=== PATIENT | male | born 1965 | race Caucasian/White ===

== ENCOUNTER 2017-04-20 20:15 | Emergency (ER) | payer MEDICARE, OTHER ==
[2017-04-20 21:08] LABS: BASOPHILS 0.3 % (0-2); EOSINOPHILS 2.2 % (0-7); HEMATOCRIT 44.7 % (42.0-54.0); HEMOGLOBIN 15.5 g/dL (13.5-17.5); IMMATURE GRANULOCYTES 0.4 % (0-5); LYMPHOCYTES 29.4 % (15-50); MCH 33.1 pg (26.0-34.0); MCHC 34.7 g/dL (31.0-37.0); MCV 95.5 fL (80.0-100.0); MONOCYTES 6.5 % (2-11); NEUTROPHILS 61.2 % (40-80); PLATELET COUNT 193 10x3/uL (130-400); RBC 4.68 10x6/uL (4.20-6.10); RDW 13.1 % (11.5-14.5); WBC 7.7 10x3/uL (4.8-10.8)
[2017-04-20 21:23] LABS: ALBUMIN 3.7 g/dL (3.4-5.0); ALKALINE PHOSPHATASE 104 U/L (46-116); ALT (SGPT) 33 U/L (10-68); CALC OSMOLALITY 281 mosm/kg (275-300); CALCIUM 8.9 mg/dL (8.5-10.1); CARBON DIOXIDE 29.4 mmol/L (21.0-32.0); CHLORIDE - SERUM 104 mmol/L (98-107); CREATININE - SERUM 1.2 mg/dL (0.6-1.3); GLUCOSE 79 mg/dL (74-106); POTASSIUM - SERUM 3.9 mmol/L (3.5-5.1); PROTEIN - SERUM 7.4 g/dL (6.4-8.2); SODIUM 141 mmol/L (136-145); UREA NITROGEN 18 mg/dL (7-18); eGFR NON AFRICAN AMERICAN 67 mL/min (90-120)
[2017-04-20 21:34] LABS: CKMB 0.3 U/L (0.0-3.6); CREATINE KINASE 95 UL (21-232); TROPONIN-I < 0.017 ng/mL (0.000-0.060)
== END 2017-04-20 23:13 | disposition home or self-care (01) ==
LOC: D.ER 20:15 → EDBD 20:15 → D.ER 23:13
PROVIDERS: Emergency Medicine
DX: R07.81 Pleurodynia (principal); Z86.718 Personal history of other venous thrombosis and embolism; Z86.79 Personal history of other diseases of the circulatory system; F17.200 Nicotine dependence, unspecified, uncomplicated

== ENCOUNTER 2017-05-19 12:14 | Emergency (ER) | payer MEDICARE | END 2017-05-19 14:24 | disposition home or self-care (01) | LOC: D.ER 12:14 | DX: S80.11XA Contusion of right lower leg, initial encounter (principal); W13.3XXA Fall through floor, initial encounter; Y93.89 Activity, other specified; Y92.029 Unspecified place in mobile home as the place of occurrence of the external cause ==

== ENCOUNTER → 2017-05-22 08:35 | Outpatient (CLI) | payer MEDICARE | END | disposition home or self-care (01) | LOC: D.ECHO 08:35 | DX: R06.00 Dyspnea, unspecified (principal); I10 Essential (primary) hypertension ==

== ENCOUNTER 2017-07-04 13:38 | Inpatient (IN) | payer MEDICARE, MEDICAID ==
[~2017-07-04] VITALS: Ht 182.9 cm; Wt 111.1 kg
--- NOTE | ~2017-07-04 | HEMODYNAMI ---
PATIENT:KEVIN EARLY MEDICAL RECORD: [id number] : 69 LOCATION[facility] [address] [id number] ADMISSION DATE: 07/04/17 Generatedon:07/07/201710:13 Patient name: KEVIN EARLY Patient #: [id number] SSN : : 1965 Date of study: 07/07/2017 Page: Of Hemodynamic Procedure Report Patient Data Patient Demographics Procedure consent was obtained First Name: KEVIN Gender: Male Last Name: NNEKA : 1965 [facility] Initial: YOUNG Age: 51 year(s) Patient #: [id number] Race: Unknown Additional ID: [id number] Contact details [address]: [address] [place] [address] State: [place] City: [place] Zip code: [address] Past Medical History Allergies Allergen Reaction Date Comments Reported Other allergy 07/07/2017 IBUPROFEN, METOPROLOL, RELEFEN, GARLIC, ONION Admission Admission Data Admission Date: 07/04/2017 Admission Time: 13:40 Room #: D.2127 Weight (lbs.): 244.71 Weight (kg.): 111 Lab Results Lab Result Date: 07/07/2017 Lab Result Time: 0:00 Biochemistry Name Units Result Min Max BUN mg/dl 31 --(----)-* 7 18 Creatinine mg/dl 1.1 --(--*-)-- 0.6 1.3 CBC Name Units Result Min Max Hemoglobin g/dl 14.7 --(-*--)-- 13.5 17.5 Procedure Procedure Types Cath Procedure Diagnostic Procedure Right Heart RHC and LHC w/Coronaries Miscellaneous Procedures Moderate Sedation up to 45 minutes Procedure Description Procedure Date Procedure Date: 07/07/2017 Procedure Start Time: 9:32 Procedure End Time: 10:12 Procedure Staff Name Function Petros De Souza MD Performing Physician Magaly Medellin RT Scrub Reji Reyes RN Nurse Lillian Michelle RN Nurse Jose De Jesus Bullard RT Monitor Procedure Data Cath Procedure Fluoroscopy Diagnostic fluoroscopy Total fluoroscopy Time: 5.9 time: 5.9 min min Diagnostic fluoroscopy Total fluoroscopy dose: 660 dose: 660 mGy mGy Contrast Material Contrast Material Type Amount (ml) Isovue 300 54 Entry Location Entry Primary Successful Side Size Upsize Upsize Entry Closure Saeed ccessful Closure Location (Fr) 1 (Fr) 2 (Fr) Remarks Device Remarks Femoral Right 7 Fr Manual vein Short Compression Femoral Right 5 Fr Exoseal artery Estimated blood loss: 5 ml Diagnostic catheters Device Type Used For End Catheter Placement CrowdSling 7Fr Procedure Riverside Thermodilution danny Cordis 5Fr JL 4.0 Procedure Catheter (MP) Cordis 5Fr 3DRC Catheter Procedure (MP) Cordis 5Fr Pigtail Procedure Catheter (MP) Procedure Complications No complications Procedure Medications Medication Administration Route Dosage 0.9% NaCl I.V. Oxygen NC 2 l/min Lidocaine 2% added to field 20 Heparin Flush Bag added to field 3 bags (1000units/500ml NS) Versed I.V. 1 mg Fentanyl I.V. 25 mcg Versed I.V. 1 mg Fentanyl I.V. 50 mcg Hemodynamics Rest HGB: 14.7 (g/dl) Heart Rate: 64 (bpm) Oxygen Saturations Time Location Saturations Hgb (g/dl) O2 Content Use (%) (ml/L) 9:43 AO 93.9 9:43 RV 68.8 9:43 AMY 70.3 9:43 PA 68.2 9:43 PCW 69.3 9:48 PCW 92.8 9:55 RAH 66.6 9:57 RAL 69.8 Pressure Samples Time Site Value (mmHg) Purpose Heart Use Rate(bpm) 9:42 PCW 27/31(23) Snapshot 63 9:44 PA 37/26(29) Snapshot 53 9:51 RV 44/12,21 Snapshot 63 9:53 RA 21/20(18) Snapshot 72 9:59 AO 118/85(101) Snapshot 68 10:05 LV 119/3,21 Snapshot 64 10:05 LV 117/4,23 EDP 64 10:06 AO 109/67(86) Pullback 63 10:06 LV 108/16,23 Pullback 63 Gradients Valve Time Site 1 Site 2 Mean SEP/DFP Peak To Heart Use (mmHg) (sec/min) Peak Rate (mmHg) (bpm) Aortic 10:06 LV AO 0 14 0 63 108/16,23 109/67(86) Thermodilution Cardiac Output Time Cardiac Output (l/min) Use 9:49 5.38 l/m 9:50 5.13 l/m Calculations Vascular Value Indexed CO SV CO CI Resistance (dyne) values (ml/beat) (l/min) (l/(min*m)) TSVR 1304.47 Thermal 84.08 5.26 SVR 1025.21 TPVR 441.96 PVR 90.39 PVR/SVR 0.09 Systolic Diastolic Ejection Regurgitation SW SWI TPVR/TSVR 0.34 Vol. Vol. (%) (%) Source Thermal Left 71 .68 Right 14.86 Source Thermal Content (ml/l) O2 Difference (ml/l) O2 SA 187.72 SA-MV(AV) 51.37 O2 MV 136.35 PV-PA(VA) O2 PA 136.35 PV-MV(VV) Valve P-P Mean Valve Index Valve Source Name Gradient Area Flow (cm2) Aortic 0 0 363.67 Thermal 0 0 Snapshots Thermal Samples Pre Cath Intra NCS Post Cath Vital Signs Time Heart Resp SPO2 etCO2 NIBP (mmHg) Rhythm Pain Sedation Rate (ipm) (%) (mmHg) Status Level (bpm) 9:14:53 71 14 97 0 Measuring NSR 0 (11) 10(A) , No pain 9:15:18 71 18 97 0 No Cuff NSR 0 (11) 10(A) , No pain 9:18:16 64 16 98 39.5 131/79(103) NSR 0 (11) 10(A) , No pain 9:22:55 60 26 99 38 125/85(109) NSR 0 (11) 10(A) , No pain 9:27:35 58 30 98 35.7 117/77(95) NSR 0 (11) 10(A) , No pain 9:32:14 66 27 93 36.5 117/72(95) NSR 0 (11) 10(A) , No pain 9:36:55 65 16 92 38 120/79(94) NSR 0 (11) 10(A) , No pain 9:41:33 65 22 93 39.5 120/82(99) NSR 0 (11) 10(A) , No pain 9:46:12 69 31 94 35.7 119/75(102) NSR 0 (11) 10(A) , No pain 9:50:50 60 16 94 35.7 114/78(90) NSR 0 (11) 10(A) , No pain 9:55:27 64 32 93 40.3 120/80(97) NSR 0 (11) 10(A) , No pain 10:00:05 65 48 94 38 120/79(93) NSR 0 (11) 10(A) , No pain 10:04:44 66 32 96 38.8 113/69(86) NSR 0 (11) 10(A) , No pain 10:09:23 62 21 94 39.5 109/65(88) NSR 0 (11) 10(A) , No pain Medications Time Medication Route Dose Verified Delivered Reason Notes Effe ctiveness by by 9:18:16 0.9% NaCl I.V. kvo/hr Petros Lillian used for Nolvia woodward MD 9:18:38 Oxygen NC 2 Petros Lillian used for l/min Nolvia woodward MD 9:19:02 Lidocaine 2% added 20ml Petros Petros used for to vial Nolvia De Souza MD procedure field RAI 9:19:36 Heparin Flush added 3 bags Petros Petros used for Bag to Nolvia De Souza MD procedure (1000units/500ml field RAI NS) 9:33:11 Versed I.V. 1 mg Petros Lillian for Nolvia Michelle RN sedation 9:33:27 Fentanyl I.V. 25 mcg Petros Lillian for Nolvia Michelle RN sedation 10:00:03 Versed I.V. 1 mg Petros Lillian for Nolvia Michelle RN sedation 10:00:15 Fentanyl I.V. 50 mcg Petros Lillian for Nolvia Michelle RN sedation Procedure Log Time Note 8:42:59 Reji Reyes RN sent for patient. Start room use. 8:43:01 Time tracking: Regular hours 8:43:06 Plan of Care:Hemodynamics will remain stable., Cardiac rhythm will remain stable., Comfort level will be maintained., Respiratory function will remain adequate., Patient/ family verbilizes understanding of procedure., Procedure tolerated without complication., Recovers from procedure without complications.. 8:43:37 H&P Date Dictated: 07/06/2017 Within 30 days and on chart.. 8:44:21 Lab Result : BUN 31 mg/dl 8:44: Lab Result : Creatinine 1.1 mg/dl 8:44: Lab Result : Hemoglobin 14.7 g/dl 9::21 Patient received from PCU to CCL 1 Alert and oriented. Tansferred to table in Supine position. 9::23 Warm blankets applied, and blayne hugger turned on for patient comfort. 9::24 Correct patient and procedure confirmed by team. 9::25 Signed procedure consent form obtained from patient. 9:: ECG and BP/O2 sat monitors applied to patient. 9:13:45 Vital chart was started 9:18:07 Baseline sample Acquired. 9:18:15 Rhythm: sinus rhythm 9:18:16 0.9% NaCl kvo/hr I.V. was administered by Lillian Michelle RN; used for procedure; 9:18:16 Full Disclosure recording started 9:18:17 Pre-procedure instructions explained to patient. 9:18:18 Pre-op teaching completed and patient verbalized understanding. 9:18:21 Family in waiting room. 9:18:23 Patient NPO since Midnight. 9:18:38 Oxygen 2 l/min NC was administered by Lillian Michelle RN; used for procedure; 9:19:02 Lidocaine 2% 20ml vial added to field was administered by Petros De Souza MD; used for procedure; 9:19:36 Heparin Flush Bag (1000units/500ml NS) 3 bags added to field was administered by Petros De Souza MD; used for procedure; 9:21:13 Patient allergic to Other allergyIBUPROFEN, METOPROLOL, RELEFEN, GARLIC, ONION 9:21:15 Is the patient allergic to Iodine/contrast media? No. 9:21:19 Is patient on blood thinner?Yes 9:21:28 ACC The patient was administered the following blood thiners within the last 24 hours: ACCPlavix, Eliquis 9:21:35 Patient diabetic? No. 9:21:38 Previous problem with sedation/anesthesia? No ? 9:21:44 Snore? Yes 9:21:45 Sleep apnea? No 9:21:46 Deviated septum? No 9:21:47 Opens mouth fully? Yes 9:21:48 Sticks out tongue? Yes 9:21:50 Airway obstruction? No ? 9:21:52 Dentures? No ? 9:21:57 Pre procedure: right dorsailis pedis pulse 2+ Normal; easily identifiable; not easily obliterated 9:22:02 Patient pain scale 0/10 ?. 9:22:07 IV patent on arrival in right hand with 0.9% NaCl at [facility]. 9:22:10 Lab results completed and on chart. 9:22:15 Right groin area was prepped with chlora-prep and draped in sterile fashion 9:22:16 Alarms reviewed by R. N. 9:22:17 Sharps counted by scrub and verified by R.N. 9:26:27 Physician paged 9:26:40 Use device set Femoral Dx 9:26:41 Acist Syringe opened to sterile field. 9:26:44 Tegaderm 4 x 4 opened to sterile field. 9:26:45 Acist Hand Control opened to sterile field. 9:26:45 Acist Manifold opened to sterile field. 9:26:46 Bag Decanter opened to sterile field. 9:26:46 Medline Cath Pack opened to sterile field. 9:26:47 Terumo 5Fr Kingston Sheath opened to sterile field. 9:26:47 St Clint 260cm J .035 wire opened to sterile field. 9:26:49 Diagnostic Infinity 5Fr Multipack catheter opened to sterile field. 9:27:13 Cook 4Fr Micropuncture ([id number]) opened to sterile field. 9:27:36 --------ALL STOP TIME OUT------ 9:27:37 Final Timeout: patient, procedure, and site verified with staff and physician. All members of the team are in agreement. 9:27:47 Right groin site verified by team. 9:27:52 Physical assessment completed. ASA score P 2 - A patient with mild systemic disease as per Petros De Souza MD. 9:27:56 Sedation plan: IV Moderate Sedation Versed, Fentanyl 9:32:50 Procedure started. 9:32:59 Local anesthetic to right femoral artery with Lidocaine 2% by Petros De Souza MD.INITIAL ACCESS ONLY 9:33:11 Versed 1 mg I.V. was administered by Lillian Michelle RN; for sedation; 9:33:27 Fentanyl 25 mcg I.V. was administered by Lillian Michelle RN; for sedation; 9:34:29 A 7 Fr Short sheath was inserted into the Right Femoral vein 9:34:39 A 5 Fr sheath was inserted into the Right Femoral artery 9:37:59 Merit Prelude Femoral Sheath (NO COST SUPPLY) opened to sterile field. 9:40:25 A CrowdSling 7Fr Riverside Thermodilution danny was advanced over the wire and used for Procedure. 9:43:30 AO saturation: 93.9% 9:43:34 RV saturation: 68.8% 9:43:37 Mid RA saturation: 70.3% 9:43:39 PA saturation: 68.2% 9:43:44 PCW saturation: 69.3% 9:44:52 Patient Weight : 244.71 lbs 9:48:48 PCW saturation: 92.8% 9:49:32 Thermodilution performed using a Sauceda 131F7 7.0 Fr 19-22C 10.00 mL. Injectate temperature was 16.68 C, CO: 5.38 L/min, average CO: 5.26 L/min 9:50:47 Thermodilution performed using a Sauceda 131F7 7.0 Fr 19-22C 10.00 mL. Injectate temperature was 16.70 C, CO: 5.13 L/min, average CO: 5.26 L/min 9:55:42 High RA saturation: 66.6% 9:56:40 Right heart pressures and cardiac output were obtained. 9:56:43 Oximetry samples were obtained 9:56:44 Riverside-Juliet removed. 9:57:13 Low RA saturation: 69.8% 9:58:42 A Cordis 5Fr JL 4.0 Catheter (MP) was advanced over the wire and used for Procedure. 9:59:58 LCA angiography performed. 10:00:03 Versed 1 mg I.V. was administered by Lillian Michelle RN; for sedation; 10:00:15 Fentanyl 50 mcg I.V. was administered by Lillian Michelle RN; for sedation; 10:01:29 Catheter removed. 10:02:03 A Cordis 5Fr 3DRC Catheter (MP) was advanced over the wire and used for Procedure. 10:03:13 RCA angiography performed. 10:03:15 Catheter removed. 10:04:00 A Cordis 5Fr Pigtail Catheter (MP) was advanced over the wire and used for Procedure. 10:06:19 Catheter removed. 10:06:48 Cordis 5Fr Exoseal opened to sterile field. 10:07:02 Sheath removed intact; hemostasis achieved with Exoseal to the Right Femoral artery. 10:07:09 Sheath removed intact; hemostasis achieved with Manual Compression to the Right Femoral vein. 10:07:20 Procedure ended.(Physican Out) 10:07:37 Fluoroscopy time 05.90 minutes. 10:07:46 Fluoroscopy dose: 660 mGy 10:07:46 Flurop Dose total: 660 10:07:50 Contrast amount:Isovue 300 54ml. 10:07:52 Sharps counted by scrub and verified by R.N. 10:08:08 Post-op/insertion site Right Femoral artery dressed using a 4 x 4 and Tegaderm. 10:08:28 Post right femoral artery:stable, soft, clean and dry 10:08:29 Post Procedure Pulses reassessed and unchanged 10:08:36 Post procedure: right dorsailis pedis pulse 2+ Normal; easily identifiable; not easily obliterated. 10:08:41 Post-procedure physical assessment completed. ASA score P 2 - A patient with mild systemic disease as per Petros De Souza MD. 10:08:45 Post procedure rhythm: unchanged. 10:08:49 Estimated blood loss: 5 ml 10:08:51 Post procedure instruction explained to patient.Patient verbalizes understanding. 10:08:53 Patient needs reinforcement of post procedure teaching. 10:09:34 Procedure type changed to Cath procedure, Diagnostic procedure, Right Heart, RHC and LHC w/Coronaries, Miscellaneous Procedures, Moderate Sedation up to 45 minutes 10:10:56 Procedure and supply charges have been captured, reviewed, submitted and are correct. 10:10:58 Procedure Complication : No complications 10:12:26 Vital chart was stopped 10:12:26 See physician's report for complete and final results. 10:12:30 Report given to PCU. 10:12:34 Patient transfered to PCU with Bed. 10:12:35 Procedure ended. 10:12:35 Full Disclosure recording stopped 10:12:41 End room use (Document Last) Device Usage Item Name Manufacture Quantity Catalog Hospital Part Current Minima l Lot# / Number Charge Number Stock Stock Serial# Code Acist Syringe Acist 1 25467 [id number] 686030 740849 20 Medical Systems Inc Tegaderm 4 x 4 3M 1 [id number] [id number] 168183 491848 5 Acist Hand Acist 1 99608 923691 544274 938590 5 Control Medical Systems Inc Acist Manifold Acist 1 07697 215138 620999 591619 5 Medical Systems Inc Bag Decanter Microtek 1 2002S 602392 03352 547241 5 Medical Inc. Medline Cath Cardinal 1 [id number] 352788 23466 477287 5 Pack Health Terumo 5Fr Terumo 1 [id number] 355244 242122 979821 [address] Clint [address] Clint 1 396963 093995 334063 653492 30 J .035 wire Diagnostic Cardinal 1 [id number] 185504 38197 752338 30 Infinity 5Fr Health Multipack catheter Cook 4Fr Cook Medical 1 [id number] 168884 206826 632045 5 Micropuncture ([id number]) Merit Prelude Merit 1 540705 935086 5 Femoral Sheath Medical (NO COST SUPPLY) Sauceda Sauceda 1 [id number] 368924 68233 585429 3 Lifesciences Lifesciences 7Fr Riverside Thermodilution danny Cordis 5Fr JL Cardinal 1 696926 5 4.0 Catheter Health (MP) Cordis 5Fr Cardinal 1 023553 5 3DRC Catheter Health (MP) Cordis 5Fr Cardinal 1 597572 5 Pigtail Health Catheter (MP) Cordis 5Fr Cardinal 1 EX500 900438 870044 969851 10 [facility] Divide Signature Audit [place] Stage Time Signature Unsigned Intra-Procedure 07/07/2017 Magaly Medellin 10:13:01 AM RT(R) Signatures Monitor : Jose De Jesus Bullard RT Signature : Date : Time : [facility] [address] [facility], [facility]901
--- NOTE | 2017-07-04 14:00 | NUR ---
RECEIVED PT FROM ADMISSIONS VIA W/C SOB NOTED O2 SAT 96% ON ROOM AIR SKIN W/D COLOR WNL TELEMETRY APPLIED PT IS AAOX4 IV SITD TO RT HAND WITH 22 GA IV CATHETER X1 STICK USING ASEPTIC TECHNIQUE PER FINISHER HOT STRIP WILL CONTINUE TO MONITOR
[2017-07-04 14:03] VITALS: BMI 34.0
[2017-07-04 15:54] LABS: BASOPHILS 0.1 % (0-2); EOSINOPHILS 1.4 % (0-7); HEMATOCRIT 44.4 % (42.0-54.0); HEMOGLOBIN 15.4 g/dL (13.5-17.5); IMMATURE GRANULOCYTES 0.3 % (0-5); LYMPHOCYTES 23.1 % (15-50); MCH 32.8 pg (26.0-34.0); MCHC 34.7 g/dL (31.0-37.0); MCV 94.5 fL (80.0-100.0); MEAN PLATELET VOLUME 11.2 fL (7.4-10.4); MONOCYTES 4.1 % (2-11); PLATELET COUNT 176 10x3/uL (130-400); RDW 12.3 % (11.5-14.5)
[2017-07-04 16:00] VITALS: BP 121/86
[2017-07-04 16:41] LABS: ALBUMIN 3.7 g/dL (3.4-5.0); ALKALINE PHOSPHATASE 123 U/L (46-116); ALT (SGPT) 41 U/L (10-68); BILIRUBIN - TOTAL 0.27 mg/dL (0.2-1.3); CALC OSMOLALITY 276 mosm/kg (275-300); CALCIUM 9.1 mg/dL (8.5-10.1); CARBON DIOXIDE 29.2 mmol/L (21.0-32.0); CHLORIDE - SERUM 103 mmol/L (98-107); GLUCOSE 86 mg/dL (74-106); POTASSIUM - SERUM 4.1 mmol/L (3.5-5.1); PRO BNP 32 pg/mL (0-125); PROTEIN - SERUM 7.6 g/dL (6.4-8.2); SODIUM 140 mmol/L (136-145); UREA NITROGEN 9 mg/dL (7-18); eGFR NON AFRICAN AMERICAN 84 mL/min (90-120)
--- NOTE | 2017-07-04 19:20 | NUR ---
ROUNDING NOTE: PT IS SOB AND VERY WHEEZY UPON ENTERING ROOM. HIS OXYGEN SAT IS 96% ON RA. CALLED [facility]Y TO GET UPDRAFT TREATMENT. PT ALSO W/ C/O PLEURITIC CP AND JORDAN. MEDICATED W/ FIORICET. IF THAT DOES NOT HELP, WILL CALL MD FOR ADDITIONAL ORDERS. PT HAS 22G TO LEFT HAND SALINE LOC. PT IS ALERT AND ORIENTED, UP AD GILBERT. WILL CONT TO MONITOR.
[2017-07-04 21:05] VITALS: BP 141/92
[2017-07-05] VITALS (7 sets, daily range): BP systolic 94–128; BP diastolic 35–79; Ht 182.9 cm; Wt 111.1 kg
--- NOTE | 2017-07-05 00:45 | NUR ---
PT STILL W/ C/O PLEURITIC CP AND HEADACHE DUE TO COUGHING. IN ADDITION, PT QUESTIONS IF HE IS SUPPOSED TO BE GETTING A STEROID, WHICH HAS NOT BEEN ORDERED. ACCORDING TO DR. MISTRY'S OFFICE NOTE, HIS INTENTION WAS TO ORDER STEROIDS. CALL MADE TO DR. FLORES IN THE ER AND RECEIVED ORDERS FOR IV SOLUMEDROL AND PEROCET FOR PAIN. WILL CONT TO MONITOR.
--- NOTE | 2017-07-05 04:30 | NUR ---
PT STATES THAT HE IS FEELING MUCH BETTER AFTER RECEIVING HIS STEROIDS AND UPDRAFTS. WILL CONT TO MONITOR.
[2017-07-05 06:03] LABS: BASOPHILS 0.3 % (0-2); HEMATOCRIT 45.7 % (42.0-54.0); HEMOGLOBIN 15.5 g/dL (13.5-17.5); IMMATURE GRANULOCYTES 0.3 % (0-5); LYMPHOCYTES 10.9 % (15-50); MCH 32.4 pg (26.0-34.0); MCHC 33.9 g/dL (31.0-37.0); MCV 95.6 fL (80.0-100.0); MEAN PLATELET VOLUME 11.4 fL (7.4-10.4); MONOCYTES 1.9 % (2-11); NEUTROPHILS 85.6 % (40-80); PLATELET COUNT 194 10x3/uL (130-400); RBC 4.78 10x6/uL (4.20-6.10); RDW 12.5 % (11.5-14.5); WBC 7.3 10x3/uL (4.8-10.8)
[2017-07-05 06:37] LABS: ALBUMIN 3.6 g/dL (3.4-5.0); ANION GAP 12.1 mmol/L (8-16); BILIRUBIN - TOTAL 0.3 mg/dL (0.2-1.3); CALCIUM 9.4 mg/dL (8.5-10.1); CARBON DIOXIDE 28.4 mmol/L (21.0-32.0); POTASSIUM - SERUM 4.5 mmol/L (3.5-5.1); PROTEIN - SERUM 7.5 g/dL (6.4-8.2)
[2017-07-05 06:44] LABS: CREATININE - SERUM 1.3 mg/dL (0.6-1.3)
[2017-07-05] MEDS ORDERED: BENAZEPRIL HCL10 MG PO (06:48)
[2017-07-05] MEDS ORDERED: REVATIO20 MG PO (06:49)
[2017-07-05] MEDS ORDERED: ASPIRIN325 MG PO (06:49)
[2017-07-05] MEDS ORDERED: CELEXA40 MG PO (06:50)
[2017-07-05] MEDS ORDERED: KLONOPIN0.5 MG PO (06:51)
[2017-07-05] MEDS ORDERED: FENOFIBRATE54 MG PO (06:53)
[2017-07-05] MEDS ORDERED: NITROQUICK0.4 MG SL (06:54)
[2017-07-05] MEDS ORDERED: COREG 3.1253.125 MG PO (06:54)
--- NOTE | 2017-07-05 07:15 | NUR ---
PT WAS UP AROUND THE ROOM, NO C/O PAIN REPORTED. IV TO LEFT HAND SALINE LOCKED. NO C/O DISCOMFORT STATED FEELS BETTER. WILL CONT TO MONITOR.
--- NOTE | 2017-07-05 08:47 | NUR ---
UP SOB EATING BRK. JAY NEEDS AT THIS TIME. CALL LIGHT IN REACH. WILL MONITOR.
--- NOTE | 2017-07-05 19:16 | NUR ---
INITIAL ROUNDS COMPLETED. PT DENIES ANY DISCOMFORT. WILL CONTINUE TO MONITOR.
--- NOTE | 2017-07-05 20:10 | NUR ---
ADMISSION ASSESSMENT COMPLETED. IV TO L HAND SL. LUNGS DIMINISHED IN BASES BILAT WITH FAINT EXP WHEEZE TO UPPER L LOBE. ALERT AND ORIENTED TO PERSON, PLACE AND TIME. FAMILY AT BEDSIDE. SR UP X2, CALL LIGHT WITHIN REACH.
--- NOTE | 2017-07-05 21:14 | NUR ---
PM MEDS GIVEN. PT DENIES ANY DISCOMFORT. WILL CONTINUE TO MONITOR.
--- NOTE | 2017-07-05 23:44 | NUR ---
O2 SAT RUNNING IN HIGH 80'S. O2 2LNC PLACED WITH O2 SAT TO 93%. PERCOCET PO GIVEN FOR C/O JORDAN. WILL CONTINUE TO MONITOR.
--- NOTE | 2017-07-06 02:11 | NUR ---
PT RESTING WITH EYES CLOSED. RESP EVEN AND REGULAR. SR UP X2, CALL LIGHT WITHIN REACH.
[2017-07-06 04:24] VITALS: BP 101/67
--- NOTE | 2017-07-06 05:00 | NUR ---
PT RESTING WITH EYES CLOSED. RESP EVEN AND REGULAR. SR UP X2, CALL LIGHT WITHIN REACH.
--- NOTE | 2017-07-06 06:13 | NUR ---
VSS. PT TATED PERCOCET CONTROLLED PAIN. NEEDS MT; WILL CONTINUE TO MONITOR.
[2017-07-06 06:47] LABS: BASOPHILS 0 % (0-2); EOSINOPHILS 0 % (0-7); HEMATOCRIT 43.2 % (42.0-54.0); HEMOGLOBIN 14.8 g/dL (13.5-17.5); IMMATURE GRANULOCYTES 0.2 % (0-5); LYMPHOCYTES 5.7 % (15-50); MCH 32.3 pg (26.0-34.0); MCHC 34.3 g/dL (31.0-37.0); MCV 94.3 fL (80.0-100.0); MEAN PLATELET VOLUME 11.5 fL (7.4-10.4); MONOCYTES 1.5 % (2-11); NEUTROPHILS 92.6 % (40-80); PLATELET COUNT 212 10x3/uL (130-400); RBC 4.58 10x6/uL (4.20-6.10); RDW 12.5 % (11.5-14.5)
[2017-07-06 06:48] LABS: WBC 13.2 10x3/uL (4.8-10.8)
[2017-07-06 06:50] LABS: ALBUMIN 3.5 g/dL (3.4-5.0); ANION GAP 13.9 mmol/L (8-16); BILIRUBIN - TOTAL 0.3 mg/dL (0.2-1.3); CARBON DIOXIDE 25.6 mmol/L (21.0-32.0); CREATININE - SERUM 1.3 mg/dL (0.6-1.3); POTASSIUM - SERUM 4.5 mmol/L (3.5-5.1); PROTEIN - SERUM 7.2 g/dL (6.4-8.2)
--- NOTE | 2017-07-06 07:30 | NUR ---
INTRODUCED MYSELF TO PT PRIMARY RN FOR TODAYS SHIFT. PT RESTING QUIETLY IN BED AND DENIES ANY CURRENT PAIN OR NEEDS. WILL CHECK CHART AND CPOC.
[2017-07-06 08:47] VITALS: BP 118/71
--- NOTE | 2017-07-06 11:10 | NUR ---
AT BEDSIDE FOR CONSULT. PT DENIES ANY CURRENT NEEDS AT THIS TIME. WILL CPOC.
[2017-07-06 12:03] VITALS: BP 126/63
[2017-07-06 12:54] LABS: HEMATOCRIT 45.5 % (42.0-54.0); HEMOGLOBIN 15.7 g/dL (13.5-17.5); MCH 32.8 pg (26.0-34.0); MCHC 34.5 g/dL (31.0-37.0); MCV 95.2 fL (80.0-100.0); MEAN PLATELET VOLUME 11.3 fL (7.4-10.4); PLATELET COUNT 209 10x3/uL (130-400); RBC 4.78 10x6/uL (4.20-6.10); RDW 12.4 % (11.5-14.5); WBC 22.9 10x3/uL (4.8-10.8)
--- NOTE | 2017-07-06 13:09 | NUR ---
EKG COMPLETED ORDERED. PT WILL BE NPO AFTER MIDNIGHT FOR PLANNED HEART CATH TOMORROW AND PT VERBALIZED UNDERSTANDING. PT DENIES ANY CURRENT NEEDS, EMPTIED URINAL OF 700CC CLEAR YELLOW URINE. CL IN REACH. WILL CPOC.
[2017-07-06 13:19] LABS: CALC OSMOLALITY 278 mosm/kg (275-300); CARBON DIOXIDE 29.7 mmol/L (21.0-32.0); CHLORIDE - SERUM 96 mmol/L (98-107); CKMB 0.3 U/L (0.0-3.6); CREATINE KINASE 92 UL (21-232); CREATININE - SERUM 1.3 mg/dL (0.6-1.3); GLUCOSE 136 mg/dL (74-106); POTASSIUM - SERUM 4.3 mmol/L (3.5-5.1); SODIUM 135 mmol/L (136-145); UREA NITROGEN 33 mg/dL (7-18); eGFR NON AFRICAN AMERICAN 62 mL/min (90-120)
[2017-07-06 13:21] LABS: TROPONIN-I < 0.017 ng/mL (0.000-0.060)
[2017-07-06 13:44] LABS: LYMPHOCYTES 5 % (15-50); MONOCYTES 2 % (2-11); NEUTROPHILS 88 % (40-80)
[2017-07-06 13:45] LABS: PLATELET ESTIMATE NORMAL; PLATELET MORPHOLOGY GIANT PLTS PRESENT
--- NOTE | 2017-07-06 14:44 | NUR ---
PT UP AMBULATING AROUND NURSES STATION. RR NONLABORED PT C/O SLIGHT R.RIB/CHEST PAIN BUT STATES HE COULD BE CONSTIPATED AND STATES HE HASNT HAD A BM SINCE THE 8TH THIS MONTH. PROVIDED PT WITH SOME PRUNE JUICE REQUESTED AND WILL CTM.
[2017-07-06 16:23] VITALS: BP 91/60
[2017-07-06 18:46] LABS: CKMB 0.2 U/L (0.0-3.6); CREATINE KINASE 76 UL (21-232)
[2017-07-06 18:47] LABS: TROPONIN-I < 0.017 ng/mL (0.000-0.060)
[2017-07-06 19:00] VITALS: BP 156/75
--- NOTE | 2017-07-06 19:38 | NUR ---
RESUMED CARE OF PT, UP IN ROOM AMBULATING RESPIRATIONS EVEN AND UNLABORED ON 2LPM VIA NC. LEFT HAND SALINE LOCKED. CALL LIGHT IN REACH. NO NEEDS AT THIS TIME, WILL CONTINUE TO MONITOR. SEE NURSE ASSESSMENT.
--- NOTE | 2017-07-07 00:07 | NUR ---
NPO AT THIS TIME, NO NEEDS VOICED. CALL LIGHT IN REACH. WILL CONTINUE TO MONITOR.
[2017-07-07 00:38] VITALS: BP 118/59
[2017-07-07 01:42] LABS: CKMB 0.2 U/L (0.0-3.6); CREATINE KINASE 61 UL (21-232)
[2017-07-07 01:44] LABS: TROPONIN-I < 0.017 ng/mL (0.000-0.060)
[2017-07-07 04:24] VITALS: BP 112/63
[2017-07-07 05:36] LABS: BASOPHILS 0 % (0-2); EOSINOPHILS 0 % (0-7); HEMATOCRIT 43.2 % (42.0-54.0); HEMOGLOBIN 14.7 g/dL (13.5-17.5); IMMATURE GRANULOCYTES 0.3 % (0-5); LYMPHOCYTES 6.3 % (15-50); MCH 32.8 pg (26.0-34.0); MCV 96.4 fL (80.0-100.0); MEAN PLATELET VOLUME 11.8 fL (7.4-10.4); MONOCYTES 2.4 % (2-11); PLATELET COUNT 187 10x3/uL (130-400); RBC 4.48 10x6/uL (4.20-6.10); RDW 12.4 % (11.5-14.5); WBC 13.4 10x3/uL (4.8-10.8)
[2017-07-07 05:42] LABS: ALBUMIN 3.6 g/dL (3.4-5.0); ALKALINE PHOSPHATASE 98 U/L (46-116); ALT (SGPT) 35 U/L (10-68); BILIRUBIN - TOTAL 0.18 mg/dL (0.2-1.3); CALC OSMOLALITY 284 mosm/kg (275-300); CALCIUM 8.8 mg/dL (8.5-10.1); CARBON DIOXIDE 30.4 mmol/L (21.0-32.0); CHLORIDE - SERUM 100 mmol/L (98-107); CREATININE - SERUM 1.1 mg/dL (0.6-1.3); GLUCOSE 163 mg/dL (74-106); MAGNESIUM - SERUM 2.8 mg/dL (1.8-2.4); PHOSPHOROUS 3.7 mg/dL (2.5-4.9); PROTEIN - SERUM 7.1 g/dL (6.4-8.2); SODIUM 137 mmol/L (136-145); UREA NITROGEN 31 mg/dL (7-18); eGFR NON AFRICAN AMERICAN 75 mL/min (90-120)
[2017-07-07 05:44] LABS: POTASSIUM - SERUM 5.1 mmol/L (3.5-5.1)
--- NOTE | 2017-07-07 07:30 | NUR ---
ASSESSMENT COMPLETED. 02 AT 2 L/M PER NC. RIGHT UPPER ARM SL. TELEMERTY SHOWS SR. DENIES ANY PAIN. CALL LIGHT IN REACH WITH SR UP WILL MONITOR
[2017-07-07 08:00] VITALS: BP 123/78
--- NOTE | 2017-07-07 11:00 | NUR ---
TO SATELLITE DISH INSTALLER PER BED.
--- NOTE | 2017-07-07 11:12 | NUR ---
RESTING QUIETLY EYES CLOSED RESP UNLABORED NAD NOTED
[2017-07-07 12:00] VITALS: BP 96/67
--- NOTE | 2017-07-07 14:18 | NUR ---
UP FOR DIET. DENIES ANY NEEDS, RIGHT GROIN SOFT WITH DRSG DRY AND INTACT. UP AB GILBERT. TELEMERTY SHOWS SR
[2017-07-07 17:21] VITALS: BP 119/53
[2017-07-07 21:30] VITALS: BP 124/88
--- NOTE | 2017-07-07 22:38 | NUR ---
PT IN BED RESTING QUIETLY. BREATHING EVEN AND UNLABORED. BED IN LOW POSITION, CALL LIGHT WITHIN REACH.
--- NOTE | 2017-07-07 22:41 | NUR ---
PT IN BED RESTING QUIETLY. DENIES ANY PAIN OR NEEDS AT THIS TIME. BED IN LOW POSITION, CALL LIGHT WITHIN REACH.
[2017-07-08 02:05] VITALS: BP 120/79
[2017-07-08 05:33] LABS: BASOPHILS 0 % (0-2); EOSINOPHILS 0 % (0-7); HEMATOCRIT 48.9 % (42.0-54.0); HEMOGLOBIN 16.4 g/dL (13.5-17.5); IMMATURE GRANULOCYTES 0.3 % (0-5); LYMPHOCYTES 4.7 % (15-50); MCH 32.3 pg (26.0-34.0); MCHC 33.5 g/dL (31.0-37.0); MCV 96.4 fL (80.0-100.0); MEAN PLATELET VOLUME 11.7 fL (7.4-10.4); MONOCYTES 7.2 % (2-11); NEUTROPHILS 87.8 % (40-80); PLATELET COUNT 183 10x3/uL (130-400); RBC 5.07 10x6/uL (4.20-6.10); RDW 12.7 % (11.5-14.5); WBC 11.5 10x3/uL (4.8-10.8)
--- NOTE | 2017-07-08 05:44 | NUR ---
PT JUST INFORMED ME THAT HE HAS HAD BLURRED VISION SINCE EARLIER YESTERDAY. STATES IT HAS GOTTEN A LOT BETTER BUT THAT HE DIDNT MENTION IT RIGHT AWAY BECAUSE HE THOUGHT IT WAS NORMAL. WILL PASS ON IN REPORT.
[2017-07-08 05:45] LABS: ALBUMIN 3.7 g/dL (3.4-5.0); ALKALINE PHOSPHATASE 95 U/L (46-116); CALC OSMOLALITY 286 mosm/kg (275-300); CALCIUM 8.9 mg/dL (8.5-10.1); CARBON DIOXIDE 31.2 mmol/L (21.0-32.0); CHLORIDE - SERUM 99 mmol/L (98-107); CREATININE - SERUM 1.1 mg/dL (0.6-1.3); GLUCOSE 137 mg/dL (74-106); POTASSIUM - SERUM 4.6 mmol/L (3.5-5.1); PROTEIN - SERUM 7.5 g/dL (6.4-8.2); SODIUM 138 mmol/L (136-145); UREA NITROGEN 38 mg/dL (7-18); eGFR NON AFRICAN AMERICAN 75 mL/min (90-120)
[2017-07-08 05:54] LABS: ALT (SGPT) 61 U/L (10-68)
[2017-07-08 07:26] LABS: IMMUNOGLOBULIN E 250 IU/mL (0-100)
--- NOTE | 2017-07-08 07:27 | NUR ---
RESTING QUIETLY RESP UNLABORED NAD NOTED
--- NOTE | 2017-07-08 07:35 | NUR ---
ASSESSMENT COMPLETED. DENIES ANY NEEDS. TELEMERTY SHOWS SR 71. UP AB GILBERT. CATH SITES TO LEFT AND RIGHT GROIN WITH DRSG DRY AND INTACT. PPP. SL TO UPPER RIGHT ARM. WILL MONITOR
[2017-07-08 08:34] VITALS: BP 125/62
[2017-07-08 09:17] LABS: ANA REFLEX - DIRECT Negative (Negative)
--- NOTE | 2017-07-08 12:20 | NUR ---
UP ON SIDE OF BED FOR DIET. NO NEEDS VOICED. TELEMERTY SHOWS SB
[2017-07-08 12:38] VITALS: BP 132/86
[2017-07-08 16:52] VITALS: BP 120/87
--- NOTE | 2017-07-08 19:20 | NUR ---
PT IN BED RESTING QUIETLY. DENIES ANY PAIN OR NEEDS AT THIS TIME. WILL CTM.
[2017-07-08 20:33] VITALS: BP 126/88
--- NOTE | 2017-07-09 01:30 | NUR ---
PT IN BED RESTING QUIETLY WITH EYES CLOSED. BREATHING EVEN AND UNLABORED. BED IN LOW POSITION, CALL LIGHT WITHIN REACH.
[2017-07-09 04:39] VITALS: BP 103/59
[2017-07-09 05:48] LABS: BASOPHILS 0 % (0-2); EOSINOPHILS 0 % (0-7); HEMATOCRIT 46.7 % (42.0-54.0); IMMATURE GRANULOCYTES 0.5 % (0-5); LYMPHOCYTES 11.4 % (15-50); MCH 32.5 pg (26.0-34.0); MCHC 34.3 g/dL (31.0-37.0); MCV 94.9 fL (80.0-100.0); MEAN PLATELET VOLUME 11.5 fL (7.4-10.4); MONOCYTES 5.6 % (2-11); NEUTROPHILS 82.5 % (40-80); PLATELET COUNT 181 10x3/uL (130-400); RBC 4.92 10x6/uL (4.20-6.10); RDW 12.3 % (11.5-14.5); WBC 9.1 10x3/uL (4.8-10.8)
[2017-07-09 06:12] LABS: ALBUMIN 3.5 g/dL (3.4-5.0); ALKALINE PHOSPHATASE 95 U/L (46-116); ALT (SGPT) 47 U/L (10-68); CALC OSMOLALITY 278 mosm/kg (275-300); CALCIUM 8.7 mg/dL (8.5-10.1); CARBON DIOXIDE 27.7 mmol/L (21.0-32.0); CHLORIDE - SERUM 99 mmol/L (98-107); CREATININE - SERUM 1.1 mg/dL (0.6-1.3); GLUCOSE 131 mg/dL (74-106); POTASSIUM - SERUM 4.6 mmol/L (3.5-5.1); PROTEIN - SERUM 7.2 g/dL (6.4-8.2); SODIUM 135 mmol/L (136-145); UREA NITROGEN 32 mg/dL (7-18); eGFR NON AFRICAN AMERICAN 75 mL/min (90-120)
[2017-07-09 07:52] VITALS: BP 131/87
[2017-07-09 11:59] VITALS: BP 114/72
[2017-07-09] MEDS ORDERED: SINGULAIR10 MG PO (13:16)
[2017-07-09] MEDS ORDERED: DALIRESP500 MCG PO (13:16)
[2017-07-09] MEDS ORDERED: OMNICEF300 MG PO (13:17)
[2017-07-09] MEDS ORDERED: FLORAJEN3 CAPS460 MG PO (13:17)
[2017-07-09] MEDS ORDERED: PREDNISONE10 MG PO (13:18)
[2017-07-09 14:22] LABS: ANCA - ANTIMYELOPEROXIDASE <9.0 U/mL (0.0-9.0); ANCA - ANTIPROTEINASE 3 <3.5 U/mL (0.0-3.5); ANCA - ATYPICAL <1:20 titer (Neg:<1:20); ANCA - CYTOPLASMIC <1:20 titer (Neg:<1:20); ANCA - PERINUCLEAR <1:20 titer (Neg:<1:20)
[2017-07-09 14:59] VITALS: BP 135/89
--- NOTE | 2017-07-09 15:40 | NUR ---
Patient Name: KEVIN EARLY Admission Status: Elective Accout number: [id number] Admission Date: 07-04-2017 : 1965 Admission Diagnosis:SHORTNESS OF BREATH Attending: FEDE, Current LOS: 5 Anticipated DC Date: 07-09-2017 Planned Disposition: Home Primary Insurance: [facility] Discharge Planning Comments: * Is the patient Alert and Oriented? Yes 0 * How many steps to enter\exit or inside your home? 1 0 * PCP DR. MISTRY 0 * Pharmacy [facility] ON [address] 0 * Preadmission Environment Home with Family 0 * ADLs Independent 0 * Equipment Cane Wheelchair 0 * Other Equipment NO MEDICAL EQUIPMENT PROVIDER PREFERENCE 0 * List name and contact numbers for known caregivers / representatives who currently or will assist patient after discharge: LORRIE OR BETTYE TERAN, PARENTS, 0 * Community resources currently utilized None 0 * Please name any agencies selected above. NONE 0 * Additional services required to return to the preadmission environment? No 0 * Can the patient safely return to the preadmission environment? Yes 0 * Has this patient been hospitalized within the prior 30 days at any hospital? No 0 CM MET WITH PT IN ROOM TO DISCUSS DISCHARGE PLANNING AND NEEDS. PT REPORTS LIVING AT HOME INDEPENDENTLY AND ALONE; PT HAS BEEN REMODELING HIS HOME AND STAYING WITH HIS MOTHER AND FATHER ACROSS THE STREET. PT HAS CANE AND WHEELCHAIR WITH NO MEDICAL EQUIPMENT PROVIDER. PT HAS NO OUTSIDE SERVICES ASSISTING IN THE HOME. CM DISCUSSED AVAILABILITY OF HOME HEALTH, REHAB SERVICES AND MEDICAL EQUIPMENT. PT DENIES DISCHARGE NEEDS, REPORTS HIS PARENTS WILL PICK HIM UP FOR DISCHARGE HOME. IMPORTANT MESSAGE FROM MEDICARE PROVIDED AND EXPLAINED. Glue Jointer Feeder: Milan Oleary
--- NOTE | 2017-07-09 16:38 | NUR ---
ALERT AND ORIENTED X4. SITTING UP IN BED. DC RT UPPER ARM IV TIP INTACT. DISCHARGE INSTRUCTIONS GIVEN VERBALLY AND WRITTEN. DISCHARGE INSTRUCTIONS SIGNED ON CHART. ESCORT TO RIDE VIA WHEELCHAIR. REMAINS FREE FROM INURY.
--- NOTE | 2017-08-05 08:55 | EC ---
PATIENT:KEVIN EARLY DATE OF SERVICE: 07/04/17 SEX: M MEDICAL RECORD: [id number] DATE OF : [birth year] LOCATION:D. D.212 AGE OF PATIENT: 51 ADMISSION DATE: 07/04/17 REFERRING PHYSICIAN: INTERPRETING PHYSICIAN: JAN GONZALEZ MD ECHOCARDIOGRAM REPORT ECHO CHARGES 5 ECHO LIMITED 1 DOPPLER ECHO COLOR FLOW 2 DOPPLER ECHO PULSE CLINICAL DIAGNOSIS: CHF/RIGHT HEART FAILURE/CP ECHOCARDIOGRAPHIC MEASUREMENTS (adult normal given) AC root (d.<3.7cm) 0 cm LV Septum d (<1.2 cm> 0 cm Valve Excursion 0 cm LV Septum (systole) 0 cm Left Atria (s.<4.0cm> 0 cm LVPW d(<1.2cm) 0 cm RV (d.<2.3cm) 3.4 cm LVPW (sytole) 0 cm LV diastole(<5.6CM) 0 cm MV E-F(>70mm/sec) 0 cm LV systole 0 cm LVOT Diameter 0 cm MV exc.(>10mm) 0 cm Est.ejection fraction (50-75%) % Pericardial Effusion N DOPPLER: LVIT cm/sec A 0 cm/sec E 0 cm/sec LA 0 cm/sec RVSP 46.1 mmHg LVOT 0 cm/sec AOP1/2T 0 m/s Asc. Ao 0 cm/sec RVOT 0 cm/sec RA 0 cm/sec PA 0 cm/sec AV Gradient Peak 0 mmHg AV Mean 0 mmHg AV Area 0 cm MV Gradient Peak 0 mmHg MV Mean 0 mmHg MV Area 0 cm COMMENTS: LIMITED STUDY (2-D,COLOR,DOPPLER) COMPLETE ECHO DONE ON 05/22/17 Chain Puller: Zaheer ARMSTRONGDSOE Dance Critic: Carmina Gonzalez TAPE# PACS DATE OF SERVICE: 07/06/2017 PROCEDURE: Limited transthoracic echocardiogram. FINDINGS: 1. The left ventricle is normal in size, normal function. 2. The right ventricle is mildly to moderately enlarged. 3. The right atrium is mildly to moderately enlarged. 4. Right ventricular pressures are measured approximately 35 mmHg to 40 mmHg. 5. The IVC is not well visualized on this exam. ECHOCARDIOGRAM REPORT [id number] KEVIN EARLY IMPRESSION: The patient does have moderate dilatation of the right-sided structures with mild to moderate elevations in pulmonary pressures. TRANSINT:[id number] Voice Confirmation ID: [id number] DOCUMENT ID: [id number] 07/16/2017 Edited to correct date of service, dmm. JAN GONZALEZ MD at 0855 CC: [id number] DICTATION DATE: 07/07/17 1202 SHELLFISH BED WORKER: 07/07/17 1218 DIS IN 07/09/17 [place] [id number] [place] [address]
== END 2017-07-09 16:41 | disposition home or self-care (01) | DRG 287 ==
LOC: D.M2 13:38 → OBSVTIME 13:39 → D.M2 13:40
PROVIDERS: Emergency Medicine; Internal Medicine Cardiovascular Disease; Internal Medicine Pulmonary Disease; ADMIT Family Medicine
PROC: B2151ZZ Fluoroscopy of Left Heart using Low Osmolar Contrast (ICD-10-PCS; 2017-07-07)
PROC: 4A023N8 Measurement of Cardiac Sampling and Pressure, Bilateral, Percutaneous Approach (ICD-10-PCS; 2017-07-07)
PROC: B2111ZZ Fluoroscopy of Multiple Coronary Arteries using Low Osmolar Contrast (ICD-10-PCS; principal; 2017-07-07 08:42)
DX: I11.0 Hypertensive heart disease with heart failure (principal); J44.1 Chronic obstructive pulmonary disease with (acute) exacerbation; J44.0 Chronic obstructive pulmonary disease with (acute) lower respiratory infection; I50.31 Acute diastolic (congestive) heart failure; J20.9 Acute bronchitis, unspecified; I25.10 Atherosclerotic heart disease of native coronary artery without angina pectoris; I48.2 Chronic atrial fibrillation; E78.5 Hyperlipidemia, unspecified; K21.9 Gastro-esophageal reflux disease without esophagitis; K59.00 Constipation, unspecified; I08.1 Rheumatic disorders of both mitral and tricuspid valves; Z98.61 Coronary angioplasty status; I25.2 Old myocardial infarction; Z86.73 Personal history of transient ischemic attack (TIA), and cerebral infarction without residual deficits; Z87.891 Personal history of nicotine dependence; I27.20 Pulmonary hypertension, unspecified

== ENCOUNTER 2017-07-28 19:15 | Emergency (ER) | payer MEDICARE, MEDICAID ==
[2017-07-05 11:22] VITALS: BMI 33.9
[~2017-07-28 19:15] MED LIST: ASPIRIN325 MG PO; BENAZEPRIL HCL10 MG PO; CELEXA40 MG PO; COREG 3.1253.125 MG PO; DALIRESP500 MCG PO; FENOFIBRATE54 MG PO; FLORAJEN3 CAPS460 MG PO; KLONOPIN0.5 MG PO; NITROQUICK0.4 MG SL; OMNICEF300 MG PO; PREDNISONE10 MG PO; REVATIO20 MG PO; SINGULAIR10 MG PO
[2017-07-28 19:41] LABS: BASOPHILS 0.2 % (0-2); EOSINOPHILS 2.7 % (0-7); HEMATOCRIT 41.5 % (42.0-54.0); IMMATURE GRANULOCYTES 0.3 % (0-5); LYMPHOCYTES 33.5 % (15-50); MCH 32.8 pg (26.0-34.0); MCHC 33.7 g/dL (31.0-37.0); MCV 97.2 fL (80.0-100.0); MEAN PLATELET VOLUME 10.9 fL (7.4-10.4); MONOCYTES 3.9 % (2-11); NEUTROPHILS 59.4 % (40-80); PLATELET COUNT 199 10x3/uL (130-400); RBC 4.27 10x6/uL (4.20-6.10); RDW 13.1 % (11.5-14.5); WBC 8.9 10x3/uL (4.8-10.8)
[2017-07-28 19:51] LABS: APTT 28.9 SECONDS (22.8-39.4); INR 0.86 (0.85-1.17); PROTIME 11.3 SECONDS (11.6-15.0)
[2017-07-28 19:56] LABS: ALBUMIN 3.4 g/dL (3.4-5.0); ALKALINE PHOSPHATASE 90 U/L (46-116); ALT (SGPT) 47 U/L (10-68); BILIRUBIN - TOTAL 0.19 mg/dL (0.2-1.3); CALC OSMOLALITY 278 mosm/kg (275-300); CALCIUM 8.2 mg/dL (8.5-10.1); CARBON DIOXIDE 28.2 mmol/L (21.0-32.0); CHLORIDE - SERUM 105 mmol/L (98-107); GLUCOSE 85 mg/dL (74-106); POTASSIUM - SERUM 3.8 mmol/L (3.5-5.1); PROTEIN - SERUM 6.8 g/dL (6.4-8.2); SODIUM 139 mmol/L (136-145); UREA NITROGEN 17 mg/dL (7-18); eGFR NON AFRICAN AMERICAN 84 mL/min (90-120)
[2017-07-28 20:07] LABS: CKMB 0.7 U/L (0.0-3.6); CREATINE KINASE 90 UL (21-232)
[2017-07-28 20:15] LABS: TROPONIN-I < 0.017 ng/mL (0.000-0.060)
== END 2017-07-28 21:06 | disposition home or self-care (01) ==
LOC: D.ER 19:15
PROVIDERS: Family Medicine
DX: I63.9 Cerebral infarction, unspecified (principal); F17.200 Nicotine dependence, unspecified, uncomplicated

== ENCOUNTER 2017-08-04 16:23 | Inpatient (IN) | payer MEDICARE, MEDICAID ==
[~2017-08-04] VITALS: Ht 182.9 cm; Wt 108.9 kg
[2017-08-04 16:30] VITALS: BP 127/79; BMI 32.6
[2017-08-04 19:45] VITALS: BP 110/63
[2017-08-05 08:42] VITALS: BP 111/74
[2017-08-05 10:15] VITALS: Ht 182.9 cm; Wt 108.9 kg
[2017-08-05 19:30] VITALS: BP 108/72
[2017-08-06 06:45] LABS: BASOPHILS 0.2 % (0-2); EOSINOPHILS 3.7 % (0-7); HEMATOCRIT 44.9 % (42.0-54.0); HEMOGLOBIN 15.4 g/dL (13.5-17.5); IMMATURE GRANULOCYTES 1.2 % (0-5); LYMPHOCYTES 30.5 % (15-50); MCH 32.5 pg (26.0-34.0); MCHC 34.3 g/dL (31.0-37.0); MCV 94.7 fL (80.0-100.0); MEAN PLATELET VOLUME 11.7 fL (7.4-10.4); MONOCYTES 10.8 % (2-11); NEUTROPHILS 53.6 % (40-80); PLATELET COUNT 172 10x3/uL (130-400); RBC 4.74 10x6/uL (4.20-6.10); RDW 12.4 % (11.5-14.5); WBC 9.2 10x3/uL (4.8-10.8)
[2017-08-06 07:05] LABS: CALC OSMOLALITY 281 mosm/kg (275-300); CALCIUM 8.8 mg/dL (8.5-10.1); CARBON DIOXIDE 30.8 mmol/L (21.0-32.0); CHLORIDE - SERUM 101 mmol/L (98-107); CREATININE - SERUM 1.1 mg/dL (0.6-1.3); GLUCOSE 106 mg/dL (74-106); POTASSIUM - SERUM 4.4 mmol/L (3.5-5.1); SODIUM 139 mmol/L (136-145); UREA NITROGEN 23 mg/dL (7-18); eGFR NON AFRICAN AMERICAN 75 mL/min (90-120)
[2017-08-06 08:47] VITALS: BP 99/62
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
[2017-08-06 21:10] VITALS: BP 117/70
[2017-08-07 08:07] VITALS: BP 141/94
[2017-08-07 22:35] VITALS: BP 113/61
[2017-08-08 19:55] VITALS: BP 98/65
[2017-08-09 10:05] VITALS: BP 102/68
[2017-08-09 19:45] VITALS: BP 121/79
[2017-08-10 08:37] VITALS: BP 138/99
[2017-08-10 23:02] VITALS: BP 126/84
[2017-08-11 06:56] LABS: BASOPHILS 0.5 % (0-2); EOSINOPHILS 2.5 % (0-7); HEMATOCRIT 43.5 % (42.0-54.0); HEMOGLOBIN 14.5 g/dL (13.5-17.5); IMMATURE GRANULOCYTES 1.8 % (0-5); LYMPHOCYTES 27.4 % (15-50); MCH 32.2 pg (26.0-34.0); MCHC 33.3 g/dL (31.0-37.0); MCV 96.7 fL (80.0-100.0); MEAN PLATELET VOLUME 11.4 fL (7.4-10.4); MONOCYTES 8.3 % (2-11); NEUTROPHILS 59.5 % (40-80); PLATELET COUNT 185 10x3/uL (130-400); RDW 12.7 % (11.5-14.5); WBC 8.8 10x3/uL (4.8-10.8)
[2017-08-11 07:13] LABS: CALC OSMOLALITY 281 mosm/kg (275-300); CALCIUM 9.1 mg/dL (8.5-10.1); CARBON DIOXIDE 27.4 mmol/L (21.0-32.0); CHLORIDE - SERUM 105 mmol/L (98-107); GLUCOSE 107 mg/dL (74-106); POTASSIUM - SERUM 4.3 mmol/L (3.5-5.1); SODIUM 140 mmol/L (136-145); UREA NITROGEN 21 mg/dL (7-18); eGFR NON AFRICAN AMERICAN 84 mL/min (90-120)
[2017-08-11 08:52] VITALS: BP 121/83
[2017-08-11 21:45] VITALS: BP 112/61
[2017-08-12 08:00] VITALS: BP 113/74
[2017-08-12 20:40] VITALS: BP 103/64
[2017-08-13 07:57] VITALS: BP 109/66
[2017-08-13 20:00] VITALS: BP 136/75
[2017-08-14 08:11] VITALS: BP 125/85
[2017-08-14] MEDS ORDERED: KLONOPIN1 MG PO (08:34)
[2017-08-14] MEDS ORDERED: CELEXA20 MG PO (08:34)
[2017-08-14] MEDS ORDERED: BETAPACE 80 MG80 MG PO (08:34)
[2017-08-14] MEDS ORDERED: TRICOR145 MG PO (08:34)
[2017-08-14] MEDS ORDERED: LIPITOR20 MG PO (08:34)
[2017-08-14] MEDS ORDERED: DALIRESP500 MCG PO (08:35)
[2017-08-14] MEDS ORDERED: LASIX20 MG PO (08:35)
[2017-08-14] MEDS ORDERED: K-TAB10 MEQ PO (08:35)
[2017-08-14 19:55] VITALS: BP 91/57
[2017-08-15 08:37] VITALS: BP 123/91
== END 2017-08-15 10:59 | DRG 64 ==
LOC: D.REHAB 16:23
PROVIDERS: ADMIT Emergency Medicine
DX: I63.9 Cerebral infarction, unspecified (principal); I50.31 Acute diastolic (congestive) heart failure; G90.50 Complex regional pain syndrome I, unspecified; G81.94 Hemiplegia, unspecified affecting left nondominant side; I35.0 Nonrheumatic aortic (valve) stenosis; C62.90 Malignant neoplasm of unspecified testis, unspecified whether descended or undescended; I11.0 Hypertensive heart disease with heart failure; I48.91 Unspecified atrial fibrillation; E78.5 Hyperlipidemia, unspecified; I67.1 Cerebral aneurysm, nonruptured

== ENCOUNTER 2018-09-22 09:02 | Day surgery (SDC) | payer MEDICARE ==
[~2018-09-22] VITALS: Ht 182.9 cm; Wt 111.4 kg
--- NOTE | ~2018-09-22 | OP ---
PATIENT NAME: KEVIN EARLY MEDICAL RECORD: [id number] :69 LOCATION:D.OPS ADMISSION DATE: SURGEON: NAT VARNER MD DATE OF OPERATION: 09/22/2018 PREOPERATIVE DIAGNOSES: 1. GERD. 2. Hypertension. 3. CHF, undifferentiated. 4. Hypercholesterolemia. 5. History of CVA. 6. Coronary artery disease. 7. Pulmonary hypertension. POSTOPERATIVE DIAGNOSES: 1. GERD. 2. Hypertension. 3. CHF, undifferentiated. 4. Hypercholesterolemia. 5. History of CVA. 6. Coronary artery disease. 7. Pulmonary hypertension. PROCEDURES: 1. EGD with biopsy. 2. Hutchison pH monitor placement. SURGEON: Nat Varner MD REPORT OF PROCEDURE: An Olympus endoscope was advanced through the mouth and the esophagus. We traversed through the stomach into the first portion of the duodenum. We were able to get to the second portion of the duodenum. We could see some inflammatory changes, but otherwise it looked okay with no masses, lesions, or ulcerations visualized. As we pulled back, we inspected the body and antrum of the stomach. No masses, lesions, or ulcerations were visualized. A biopsy was taken at the antrum of the stomach for a CLOtest. As we retroflexed the camera, we could see the patient did have a small- to moderate-size hiatal hernia. As we pulled back, I could see the hiatal hernia was approximately 2-3 cm in length. The GE junction was well demarcated with no signs of ulcerations visualized. A biopsy was taken on the distal third of the esophagus near the GE junction. At this point, we measured out the GE junction to be at 40 cm from the teeth. We pulled the scope back and could see no signs of any masses, lesions, or strictures of the esophagus. As we eventually pulled the scope out, I then placed the Hutchison probe. Once the Hutchison probe was placed at about 34 cm at the teeth, then the endoscope was placed back into the esophagus to assure that the Hutchison capsule would be in good position. Once it was noted to be in good position, then it was applied to suction and it remained there for one minute before final deployment. This appeared to deploy appropriately. At this point, the case was concluded. COMPLICATIONS: None. CONDITION: Stable. ANESTHESIA: TIVA. OPERATIVE REPORT [id number] KEVIN EARLY BLOOD LOSS: Minimal. TRANSINT:[id number] Voice Confirmation ID: [id number] DOCUMENT ID: [id number] NAT VARNER MD CC: MAYURI MISTRY MD [id number] DICTATION DATE: 09/22/18 1525 COMPLAINT SUPERVISOR: 09/22/18 1654 [facility] 09/22/18 [place] [id number] [place] [id number]
[~2018-09-22 09:02] MED LIST changes: +BETAPACE 80 MG80 MG PO; +CELEXA20 MG PO; +K-TAB10 MEQ PO; +KLONOPIN1 MG PO; +LASIX20 MG PO; +LIPITOR20 MG PO; +TRICOR145 MG PO
[2018-09-22 09:29] LABS: BASOPHILS 0.3 % (0-2); EOSINOPHILS 3.2 % (0-7); HEMATOCRIT 45.3 % (42.0-54.0); HEMOGLOBIN 15.9 g/dL (13.5-17.5); IMMATURE GRANULOCYTES 0.5 % (0-5); LYMPHOCYTES 19.7 % (15-50); MCH 34.3 pg (26.0-34.0); MCHC 35.1 g/dL (31.0-37.0); MCV 97.6 fL (80.0-100.0); MEAN PLATELET VOLUME 10.4 fL (7.4-10.4); MONOCYTES 4.5 % (2-11); NEUTROPHILS 71.8 % (40-80); PLATELET COUNT 179 10x3/uL (130-400); RBC 4.64 10x6/uL (4.20-6.10); RDW 13.4 % (11.5-14.5); WBC 7.8 10x3/uL (4.8-10.8)
[2018-09-22 09:37] LABS: CALC OSMOLALITY 277 mosm/kg (275-300); CALCIUM 8.7 mg/dL (8.5-10.1); CARBON DIOXIDE 26.8 mmol/L (21.0-32.0); CHLORIDE - SERUM 102 mmol/L (98-107); GLUCOSE 115 mg/dL (74-106); POTASSIUM - SERUM 4.7 mmol/L (3.5-5.1); SODIUM 138 mmol/L (136-145); UREA NITROGEN 14 mg/dL (7-18); eGFR NON AFRICAN AMERICAN 84 mL/min (90-120)
[2018-09-22 10:17] VITALS: BP 123/81; Ht 182.9 cm; Wt 111.4 kg
[2018-09-22] MEDS ORDERED: ALBUTEROL0.63 MG/3 INH (10:30)
[2018-09-22] MEDS ORDERED: COMBIVENT RESPIM4 GM INH (10:30)
--- NOTE | 2018-09-22 10:32 | NUR ---
IV STARTED WITH 20 G ANGIOCATH IN RIGHT AC
--- NOTE | 2018-09-22 16:29 | NUR ---
PT LEFT UNIT VIA WC AT 1633
--- NOTE | 2018-09-22 16:29 | NUR ---
DC INSTRUCTIONS GIVEN TO PT/FAMILY. STATE UNDERSTANDING. DC'D IV CATH FULLY INTACT.
== END 2018-09-22 16:33 | disposition home or self-care (01) ==
LOC: D.OPS 09:02
PROVIDERS: Anesthesiology
DX: K21.9 Gastro-esophageal reflux disease without esophagitis (principal); I11.0 Hypertensive heart disease with heart failure; I50.9 Heart failure, unspecified; E78.00 Pure hypercholesterolemia, unspecified; Z86.73 Personal history of transient ischemic attack (TIA), and cerebral infarction without residual deficits; I25.10 Atherosclerotic heart disease of native coronary artery without angina pectoris; I27.20 Pulmonary hypertension, unspecified; Z01.812 Encounter for preprocedural laboratory examination

== ENCOUNTER → 2018-11-19 07:27 | Day surgery (SDC) | payer MEDICARE ==
[~2018-11-19] VITALS: Ht 182.9 cm; Wt 109.1 kg
--- NOTE | ~2018-11-19 | OP ---
PATIENT NAME: KEVIN EARLY MEDICAL RECORD: [id number] :69 LOCATION:D.OPS ADMISSION DATE: SURGEON: NAT VARNER MD DATE OF OPERATION: 11/19/2018 PREOPERATIVE DIAGNOSES: 1. Dysphagia. 2. Gastroesophageal reflux disease. 3. Diastasis recti. 4. Coronary artery disease. 5. Congestive heart failure, undifferentiated. 6. Hypertension. 7. Pulmonary hypertension. 8. Hypercholesterolemia. POSTOPERATIVE DIAGNOSES: 1. Dysphagia. 2. Gastroesophageal reflux disease. 3. Diastasis recti. 4. Coronary artery disease. 5. Congestive heart failure, undifferentiated. 6. Hypertension. 7. Pulmonary hypertension. 8. Hypercholesterolemia. PROCEDURE: EGD with a manometry tube placement. SURGEON: Nat Varner MD REPORT OF PROCEDURE: An Olympus endoscope was advanced through the patient's mouth and esophagus, esophageal manometry catheter was inserted through the left naris and easily passed through into the esophagus and out the GE junction into the stomach. I could see that some of the symptoms were past the GE junction and stomach. At this point, we pulled back the scope and assured that the catheter was not pulled back with it. The catheter appeared to be resting in good position at the conclusion of the case. COMPLICATIONS: None. CONDITION: Stable. ANESTHESIA: TIVA. BLOOD LOSS: Minimal. TRANSINT:[id number] Voice Confirmation ID: [id number] DOCUMENT ID: [id number] OPERATIVE REPORT [id number] KEVIN EARLY NAT VARNER MD CC: MAYURI MISTRY MD [id number] DICTATION DATE: 11/19/18 1058 SERVICES TECH: 11/19/18 1111 [facility] [address] [place] [id number]
[~2018-11-19 07:27] MED LIST changes: +ALBUTEROL0.63 MG/3 INH; +COMBIVENT RESPIM4 GM INH; +STERAPRED 5MG 65 M1
[2018-11-19 08:48] LABS: CALC OSMOLALITY 281 mosm/kg (275-300); CALCIUM 8.6 mg/dL (8.5-10.1); CHLORIDE - SERUM 101 mmol/L (98-107); GLUCOSE 110 mg/dL (74-106); POTASSIUM - SERUM 4.2 mmol/L (3.5-5.1); SODIUM 140 mmol/L (136-145); UREA NITROGEN 18 mg/dL (7-18); eGFR NON AFRICAN AMERICAN 84 mL/min (90-120)
[2018-11-19 08:51] LABS: HEMATOCRIT 47.7 % (42.0-54.0); HEMOGLOBIN 16.8 g/dL (13.5-17.5); LYMPHOCYTES 27.6 % (15-50); MCH 34.4 pg (26.0-34.0); MCHC 35.2 g/dL (31.0-37.0); MCV 97.7 fL (80.0-100.0); MEAN PLATELET VOLUME 10.2 fL (7.4-10.4); NEUTROPHILS 65.3 % (40-80); PLATELET COUNT 167 10x3/uL (130-400); RBC 4.88 10x6/uL (4.20-6.10); RDW 12.5 % (11.5-14.5); WBC 6.9 10x3/uL (4.8-10.8)
[2018-11-19 10:31] VITALS: BP 136/88; Ht 182.9 cm; Wt 109.1 kg
== END | disposition home or self-care (01) ==
LOC: D.OPS 07:27
PROVIDERS: ATTEND Surgery
DX: R13.10 Dysphagia, unspecified (principal); K21.9 Gastro-esophageal reflux disease without esophagitis; M62.08 Separation of muscle (nontraumatic), other site; I25.10 Atherosclerotic heart disease of native coronary artery without angina pectoris; I11.0 Hypertensive heart disease with heart failure; I50.9 Heart failure, unspecified; I27.20 Pulmonary hypertension, unspecified; E78.00 Pure hypercholesterolemia, unspecified; Z01.812 Encounter for preprocedural laboratory examination

== ENCOUNTER 2019-02-10 13:44 | Observation (INO) | payer MEDICARE ==
[2019-02-10 15:13] LABS: BASOPHILS 0.2 % (0-2); EOSINOPHILS 1.2 % (0-7); HEMATOCRIT 47.6 % (42.0-54.0); HEMOGLOBIN 17.4 g/dL (13.5-17.5); IMMATURE GRANULOCYTES 0.7 % (0-5); LYMPHOCYTES 23.5 % (15-50); MCH 35.2 pg (26.0-34.0); MCHC 36.6 g/dL (31.0-37.0); MCV 96.2 fL (80.0-100.0); MEAN PLATELET VOLUME 10.6 fL (7.4-10.4); MONOCYTES 5.3 % (2-11); NEUTROPHILS 69.1 % (40-80); PLATELET COUNT 181 10x3/uL (130-400); RBC 4.95 10x6/uL (4.20-6.10); RDW 13.3 % (11.5-14.5); WBC 8.2 10x3/uL (4.8-10.8)
[2019-02-10 15:24] LABS: APTT 29.2 SECONDS (22.8-39.4); INR 0.93 (0.85-1.17)
[2019-02-10 15:28] VITALS: BP 131/65
[2019-02-10 15:34] LABS: ALBUMIN 3.8 g/dL (3.4-5.0); ALKALINE PHOSPHATASE 97 U/L (46-116); ALT (SGPT) 43 U/L (10-68); CALC OSMOLALITY 271 mosm/kg (275-300); CALCIUM 8.6 mg/dL (8.5-10.1); CARBON DIOXIDE 26.9 mmol/L (21.0-32.0); CHLORIDE - SERUM 100 mmol/L (98-107); GLUCOSE 87 mg/dL (74-106); POTASSIUM - SERUM 4.3 mmol/L (3.5-5.1); PROTEIN - SERUM 7.7 g/dL (6.4-8.2); SODIUM 137 mmol/L (136-145); UREA NITROGEN 9 mg/dL (7-18); eGFR NON AFRICAN AMERICAN 84 mL/min (90-120)
[2019-02-10 15:48] LABS: CKMB 1.1 U/L (0.0-3.6); CREATINE KINASE 112 UL (21-232); MAGNESIUM - SERUM 2.1 mg/dL (1.8-2.4)
[2019-02-10 15:49] LABS: TROPONIN-I < 0.017 ng/mL (0.000-0.060)
[2019-02-10 16:03] VITALS: BP 146/79
[2019-02-10 18:30] VITALS: BP 114/77
--- NOTE | 2019-02-10 18:30 | NUR ---
PT REPORTS JORDAN "MUCH BETTER, I CAN TOLERATE IT NOW"
--- NOTE | 2019-02-10 19:02 | NUR ---
BS REPORT TO ANSON MILLER BY SBAR FORMAT
--- NOTE | 2019-02-10 21:35 | NUR ---
RECEIVED PT FROM ER VIA W/C WITH C/O HTN AND HEADACHE. ALERT AND ORIENTED X4. HX OF CVA WITH LT SIDED WEAKNESS BUT STATES IT GOT WORSE TODAY. SALINE LOCK NOTED TO LT AC. RESP EVEN AND NONLABORED. RATES PAIN IN HEAD 8. STATES HE IS DIZZY AT TIMES. INSTRUCTED ON BEDREST AND USE OF CALL LIGHT. HE VERBALIZED UNDERSTANDING. CL IN REACH.
--- NOTE | 2019-02-10 22:10 | NUR ---
MEDICATED WITH MORPHINE AND ZOFRAN ORDERED FOR C/O PAIN/NAUSEA. NURSE PRACTIONER IN ROOM AT THIS TIME.
--- NOTE | 2019-02-10 23:44 | NUR ---
PT STATES MORPHINE HASNT HELPED HIS PAIN AT ALL. NOTIFIED TERRIE RHOADES. NEW ORDER NOTED FOR DILAUDID.
[2019-02-11 00:59] VITALS: BP 119/79; BMI 32.6
[2019-02-11 01:15] VITALS: BP 134/88
[2019-02-11 04:55] VITALS: BP 122/57
[2019-02-11 04:56] LABS: BASOPHILS 0 % (0-2); EOSINOPHILS 0 % (0-7); HEMATOCRIT 48.1 % (42.0-54.0); HEMOGLOBIN 16.9 g/dL (13.5-17.5); IMMATURE GRANULOCYTES 0.3 % (0-5); LYMPHOCYTES 4.7 % (15-50); MCH 34.5 pg (26.0-34.0); MCHC 35.1 g/dL (31.0-37.0); MEAN PLATELET VOLUME 11.1 fL (7.4-10.4); MONOCYTES 1.4 % (2-11); NEUTROPHILS 93.6 % (40-80); PLATELET COUNT 180 10x3/uL (130-400); RDW 13.4 % (11.5-14.5)
[2019-02-11 05:03] LABS: MCV 98.2 fL (80.0-100.0); WBC 12.3 10x3/uL (4.8-10.8)
[2019-02-11 05:14] LABS: ANION GAP 12.6 mmol/L (8-16); C-REACTIVE PROTEIN 0.2 mg/dL (0.0-0.9); CALCIUM 8.6 mg/dL (8.5-10.1); CARBON DIOXIDE 27.8 mmol/L (21.0-32.0); CREATININE - SERUM 1.2 mg/dL (0.6-1.3); MAGNESIUM - SERUM 2.3 mg/dL (1.8-2.4); PHOSPHOROUS 1.9 mg/dL (2.5-4.9); POTASSIUM - SERUM 4.4 mmol/L (3.5-5.1)
--- NOTE | 2019-02-11 05:30 | NUR ---
LYING ON RT SIDE IN BED WITH EYES CLOSED. HAS BEEN UP ALL NIGHT AND JUST NOW FALLING ASLEEP. CL IN REACH.
[2019-02-11 06:03] LABS: ERYTHROCYTE SEDIMENTATION RATE 4 mm/hr (0-20)
--- NOTE | 2019-02-11 07:48 | NUR ---
PT RESTING IN BED. ALERT AND ORIENTED. NO ACUTE DISTRESS NOTED. REPORTS PAIN 5/10 AT THIS TIME. DENIES NEED FOR PAIN MED AT THIS TIME. SALINE LOC TO LEFT AC PATENT WITHOUT REDNESS OR EDEMA. DENIES FURTHER NEEDS AT THIS TIME. CL WITHIN REACH. ENCOURAGED TO CALL WITH NEEDS. CONTINUE POC
[2019-02-11 09:38] VITALS: BP 129/85
[2019-02-11 13:01] VITALS: BMI 32.5
[2019-02-11 13:55] VITALS: BP 136/80
[2019-02-11 15:46] LABS: APPEARANCE CLEAR (CLEAR); BILIRUBIN NEGATIVE (NEGATIVE); COLOR STRAW (YELLOW); GLUCOSE NEGATIVE (NEGATIVE); KETONE NEGATIVE (NEGATIVE); NITRITE NEGATIVE (NEGATIVE); PROTEIN NEGATIVE (NEGATIVE); SPECIFIC GRAVITY 1.015 (1.005-1.020); UROBILINOGEN NORMAL (NORMAL)
[2019-02-11 15:58] LABS: UDS - AMPHET NEGATIVE QUAL (NEGATIVE); UDS - BARB NEGATIVE QUAL (NEGATIVE); UDS - BENZO NEGATIVE QUAL (NEGATIVE); UDS - COCAINE NEGATIVE QUAL (NEGATIVE); UDS - OPIATE POSITIVE QUAL (NEGATIVE); UDS - PCP NEGATIVE QUAL (NEGATIVE); UDS - THC NEGATIVE QUAL (NEGATIVE)
== END 2019-02-11 17:12 | disposition home or self-care (01) ==
LOC: D.ER 13:44 → D.MS 19:52 → OBSVTIME 19:52 → D.MS 19:52
PROVIDERS: Family Medicine; ADMIT Internal Medicine Nephrology; ATTEND Internal Medicine Nephrology
DX: G44.209 Tension-type headache, unspecified, not intractable (principal); Z86.73 Personal history of transient ischemic attack (TIA), and cerebral infarction without residual deficits; I10 Essential (primary) hypertension; I48.2 Chronic atrial fibrillation; E78.5 Hyperlipidemia, unspecified; F43.10 Post-traumatic stress disorder, unspecified; K21.9 Gastro-esophageal reflux disease without esophagitis; J44.9 Chronic obstructive pulmonary disease, unspecified; F41.9 Anxiety disorder, unspecified; R42 Dizziness and giddiness

== ENCOUNTER 2019-07-01 15:08 | Emergency (ER) | payer MEDICARE ==
[~2019-07-01] VITALS: Ht 182.9 cm; Wt 111.4 kg
[2019-07-01 15:13] VITALS: Ht 182.9 cm; Wt 111.4 kg
[2019-07-01 15:27] LABS: BASOPHILS 0.2 % (0-2); EOSINOPHILS 1.7 % (0-7); HEMATOCRIT 48.8 % (42.0-54.0); HEMOGLOBIN 16.7 g/dL (13.5-17.5); IMMATURE GRANULOCYTES 0.9 % (0-5); LYMPHOCYTES 26.8 % (15-50); MCH 35.2 pg (26.0-34.0); MCHC 34.2 g/dL (31.0-37.0); MEAN PLATELET VOLUME 10.3 fL (7.4-10.4); MONOCYTES 6.8 % (2-11); NEUTROPHILS 63.6 % (40-80); PLATELET COUNT 209 10x3/uL (130-400); RBC 4.74 10x6/uL (4.20-6.10); WBC 8.7 10x3/uL (4.8-10.8)
[2019-07-01 15:39] LABS: CALC OSMOLALITY 270 mosm/kg (275-300); CALCIUM 8.2 mg/dL (8.5-10.1); CARBON DIOXIDE 27.7 mmol/L (21.0-32.0); CHLORIDE - SERUM 100 mmol/L (98-107); GLUCOSE 89 mg/dL (74-106); POTASSIUM - SERUM 3.7 mmol/L (3.5-5.1); SODIUM 137 mmol/L (136-145); UREA NITROGEN 6 mg/dL (7-18); eGFR NON AFRICAN AMERICAN 84 mL/min (90-120)
[2019-07-01 15:43] LABS: APTT 27.1 SECONDS (22.8-39.4); INR 0.92 (0.85-1.17); PROTIME 11.9 SECONDS (11.6-15.0)
[2019-07-01 15:45] LABS: D-DIMER-QUANTITATIVE 0.32 ug/mLFEU (0.20-0.54)
[2019-07-01 15:54] LABS: ALBUMIN 3.6 g/dL (3.4-5.0); ALKALINE PHOSPHATASE 113 U/L (46-116); ALT (SGPT) 37 U/L (10-68); BILIRUBIN - TOTAL 0.24 mg/dL (0.2-1.3); CKMB 0.8 U/L (0.0-3.6); CREATINE KINASE 157 UL (21-232); PROTEIN - SERUM 7.4 g/dL (6.4-8.2); TROPONIN-I < 0.017 ng/mL (0.000-0.060)
[2019-07-01 16:44] LABS: AMYLASE - SERUM 47 U/L (25-115); LIPASE 173 U/L (73-393)
[2019-07-01] MEDS ORDERED: OMEPRAZOLE20 M1 PO (17:21)
[2019-07-01] MEDS ORDERED: CARAFATE1 G PO (17:21)
[2019-07-01 17:45] VITALS: BP 126/80
== END 2019-07-01 17:46 | disposition home or self-care (01) ==
LOC: D.ER 15:08
PROVIDERS: Emergency Medicine
DX: R10.13 Epigastric pain (principal); R07.9 Chest pain, unspecified

== ENCOUNTER → 2020-06-07 09:28 | Outpatient (CLI) | payer MEDICARE ==
[2019-07-01 15:13] VITALS: BMI 33.3
[~2020-06-07 09:28] MED LIST changes: +CARAFATE1 G PO; +OMEPRAZOLE20 M1 PO
== END | disposition home or self-care (01) ==
LOC: D.NM 09:28
PROVIDERS: ATTEND Surgery
DX: R10.9 Unspecified abdominal pain (principal); R11.0 Nausea